=== PATIENT | male | born 1955 | race Caucasian/White ===

== ENCOUNTER 2024-03-28 11:22 | Day surgery (SDC) | payer MEDICARE ==
[~2024-03-28] VITALS: Ht 180.3 cm; Wt 92.0 kg
[~2024-03-28 11:22] MED LIST: PANT20TA6 PO; ROSU10TA61 PO
[2024-03-28 12:13] VITALS: TEMP 98.4
[2024-03-28 12:37] VITALS: BP 124/76; O2SAT 96
== END 2024-03-28 12:43 | disposition home or self-care (01) ==
LOC: M OPP 11:22
PROVIDERS: ATTEND Internal Medicine Gastroenterology
DX: R10.13 Epigastric pain (principal); K21.9 Gastro-esophageal reflux disease without esophagitis; E78.00 Pure hypercholesterolemia, unspecified; Z79.899 Other long term (current) drug therapy